=== PATIENT | male | born 1995 | race Caucasian/White ===

== ENCOUNTER 2021-01-10 17:12 | Emergency (ER) | payer OTHER ==
[~2021-01-10] VITALS: Ht 180.3 cm; Wt 93.9 kg
[~2021-01-10 17:12] MED LIST: Bactrim 400-801 EACH PO; METPHE5; Vibramycin100 MG PO
[2021-01-10] MEDS ORDERED: ONDA4 PO (19:29)
== END 2021-01-10 19:50 | disposition home or self-care (01) ==
LOC: ER 17:12
DX: B34.9 Viral infection, unspecified (principal); Z20.822 Contact with and (suspected) exposure to COVID-19
CPT/HCPCS: 99283